=== PATIENT | female | born 1935 | race Two or more races ===

== ENCOUNTER 2017-07-05 23:57 | Emergency (ER) | payer MEDICARE, OTHER ==
[~2017-07-05] VITALS: Ht 152.4 cm; Wt 59.4 kg
[2017-07-06 00:05] VITALS: BP 121/62
[2017-07-06] MEDS ORDERED: TRAMADOL HCL 50 MG TABLET PO ONE (00:30)
[2017-07-06] MEDS ORDERED: TRAMADOL HCL 50 MG TABLET ONE (00:38)
[2017-07-06 00:52] LABS: BASOPHILS % (AUTO) 0.3 % (0.0-2.0); EOSINOPHILS % (AUTO) 2.2 % (0.0-6.0); HEMATOCRIT 34 % (33-45); HEMOGLOBIN 11.7 g/dL (11.5-14.8); LYMPHOCYTES # (AUTO) 3.2 /CMM (0.8-4.8); LYMPHOCYTES % (AUTO) 37.2 % (20.0-44.0); MEAN CORPUSCULAR HGB CONC 34 g/dl (31.0-36.0); MEAN CORPUSCULAR VOLUME 93 fL (82-100); MONOCYTES # (AUTO) 0.7 /CMM (0.1-1.30); NEUTROPHILS # (AUTO) 4.5 /CMM (1.8-8.9); NEUTROPHILS % (AUTO) 52.3 % (43.0-81.0); PLATELET COUNT (AUTO) 306 /CMM (150-450); RED BLOOD CELL COUNT(AUTO) 3.69 MIL/uL (4.0-5.2); WHITE BLOOD COUNT (AUTO) 8.6 K/uL (4.3-11.0)
[2017-07-06 01:04] LABS: CARBON DIOXIDE 30 mmol/L (21-32); CHLORIDE 109 mmol/L (98-107); CREATININE 0.7 mg/dL (0.6-1.3); GLUCOSE 137 mg/dL (74-106); POTASSIUM 3.8 mmol/L (3.5-5.1); SODIUM SERUM 147 mmol/L (136-145); UREA NITROGEN, BLOOD 16 mg/dL (7-18)
[2017-07-06 01:05] LABS: INR 0.9 (0.87-1.13)
== END 2017-07-06 03:00 | disposition home or self-care (01) ==
LOC: ER 23:58
DX: M79.605 Pain in left leg (principal); Z96.641 Presence of right artificial hip joint
CPT/HCPCS: 36415; 80048-TC; 85025-TC; 85730-TC; 93971-TC; A4606; J7030; Z7610

== ENCOUNTER 2025-02-06 23:09 | Emergency (ER) | payer MEDICARE, OTHER ==
[~2025-02-06] VITALS: Ht 149.9 cm; Wt 54.4 kg
[2025-02-07 00:25] VITALS: TEMP 98
[2025-02-07 01:20] VITALS: BP 154/61; O2SAT 95
[2025-02-08] MEDS ORDERED: CEPH-570 PO (19:03)
== END 2025-02-07 02:16 | disposition home or self-care (01) ==
LOC: ER 23:13
DX: S83.91XA Sprain of unspecified site of right knee, initial encounter (principal); Z96.641 Presence of right artificial hip joint; Z79.02 Long term (current) use of antithrombotics/antiplatelets; W01.0XXA Fall on same level from slipping, tripping and stumbling without subsequent striking against object, initial encounter; Y93.89 Activity, other specified; Y92.89 Other specified places as the place of occurrence of the external cause; Y99.8 Other external cause status
CPT/HCPCS: 73564-TC

== ENCOUNTER 2025-02-08 16:13 | Emergency (ER) | payer MEDICARE ==
[~2025-02-08] VITALS: Ht 149.9 cm; Wt 58.5 kg
[2025-02-08 16:31] VITALS: TEMP 98.4
[2025-02-08] MEDS ORDERED: BACITRACIN ZINC OINT PACKET 1 EA PACKET TP ONE (17:01)
[2025-02-08] MEDS ORDERED: ACETAMINOPHEN ES 500 MG TABLET ONE (17:02)
[2025-02-08] MEDS: ACETAMINOPHEN ES 500 MG TABLET PO ONE (17:05)
[2025-02-08] MEDS: BACITRACIN ZINC OINT PACKET 1 EA PACKET TP ONE (18:30)
[2025-02-08] MEDS ORDERED: CEPH-570 PO (19:03)
[2025-02-08 19:09] VITALS: BP 125/68; O2SAT 97
== END 2025-02-08 19:09 | disposition home or self-care (01) ==
LOC: ER 16:21
DX: S41.112A Laceration without foreign body of left upper arm, initial encounter (principal); S80.00XA Contusion of unspecified knee, initial encounter; L03.90 Cellulitis, unspecified; I10 Essential (primary) hypertension; Z96.641 Presence of right artificial hip joint; W18.39XA Other fall on same level, initial encounter; Y93.89 Activity, other specified; Y92.59 Other trade areas as the place of occurrence of the external cause; Y99.9 Unspecified external cause status
CPT/HCPCS: 12002; 73080; 99284; A6403